=== PATIENT | male | born 1995 | race Caucasian/White ===

== ENCOUNTER 2017-01-15 17:48 | Emergency (ER) | payer OTHER ==
[~2017-01-15] VITALS: Ht 177.8 cm; Wt 102.0 kg
[~2017-01-15 17:48] MED LIST: KEFLEX500 MG PO; MOTRIN800 MG PO; PERCOCET 10/1 TABLET PO; PREDNISONE10 M1 PO
[2017-01-15 18:11] LABS: BASOPHIL COUNT 0.1 K/uL (0-0.1); EOSINOPHIL (%) 0.6 % (0-5); EOSINOPHIL COUNT 0.1 K/uL (0-0.3); IMMATURE GRANULOCYTE (%) 0.5 % (0.0-0.7); INSTRUMENT ABS NEUTROPHIL CT 4.6 K/uL; LYMPHOCYTE COUNT 3.4 K/uL (1.0-2.8); MCH 30.9 PG (29.0-34.0); MCHC 34.8 G/DL (30.0-36.0); MEAN PLAT.VOLUME 10.1 uM^3 (9.0-12.4); MONOCYTE (%) 7.1 % (3-12); MONOCYTE COUNT 0.6 K/uL (0-0.8); NEUTROPHIL (%) 52.1 % (45-76); NEUTROPHIL COUNT 4.6 K/uL (1.8-6.4); PLATELET COUNT 332 K/uL (156-360); RBC DIS.WIDTH-CV 11.7 % (11.8-14.6); RBC DIS.WIDTH-SD 37.9 % (39-53); RED BLOOD COUNT 5.17 M/uL (4.00-5.50); WHITE BLOOD COUNT 8.7 K/uL (4.1-10.2)
[2017-01-15 18:25] LABS: AMYLASE 49 IU/L (1-118); CHLORIDE 102 mEq/L (99-109); POTASSIUM 3.5 mEq/L (3.7-5.4); SODIUM 138 mEq/L (136-147)
[2017-01-15 18:26] LABS: GLUCOSE 129 mg/dL (70-99)
[2017-01-15 18:28] LABS: ANION GAP 18 MEQ/L (2-14)
[2017-01-15 18:30] LABS: GFR ESTIMATE (CALCULATED) > 59 mL/min/; SERUM ETHYL ALCOHOL < 10 mg/dL
[2017-01-15 18:31] LABS: UREA NITROGEN (BUN) 14 mg/dL (9-23)
[2017-01-15 18:33] LABS: LIPASE 24 U/L (1.0-51.0)
[2017-01-15 20:01] LABS: ADD MIUA? NO; BILIRUBIN NEGATIVE; BLOOD NEGATIVE; COLOR STRAW ((YELLOW)); GLUCOSE (STRIP) NEGATIVE; KETONES NEGATIVE; LEUKOCYTES NEGATIVE; NITRITE NEGATIVE; PROTEIN (STRIP) NEGATIVE; SPECIFIC GRAVITY 1.027 (1.000-1.030); UCUL ADDED? NO; UROBILINOGEN 0.2 MG/DL (0.2-1.0)
[2017-01-15 20:19] LABS: AMPHETAMINE NEGATIVE (500 ng/mL); BARBITURATES NEGATIVE (200 ng/mL); BENZODIAZEPINES NEGATIVE (150 ng/mL); COCAINE NEGATIVE (150 ng/mL); INTERNAL CONTROLS VALID? YES; METHADONE NEGATIVE (200 ng/mL); METHAMPHETAMINE NEGATIVE (500 ng/mL); OPIATES (MORPHINE) NEGATIVE (100 ng/mL); OXYCODONE PRESUMPTIVE POSITIVE (100 ng/mL); PHENCYCLIDINE NEGATIVE (25 ng/mL); PROPOXYPHENE NEGATIVE (300 ng/mL); THC CANNABINOIDS NEGATIVE (50 ng/mL); TRICYCLIC ANTIDEPRESSANTS NEGATIVE (300 ng/mL)
== END 2017-01-15 23:01 | disposition short-term general hospital (02) ==
LOC: TRA 17:48 → EME 17:48 → TRA 23:01
PROVIDERS: Emergency Medicine
DX: M62.81 Muscle weakness (generalized) (principal); M54.5 Low back pain; R00.0 Tachycardia, unspecified; T14.8 Other injury of unspecified body region; V49.40XA Driver injured in collision with unspecified motor vehicles in traffic accident, initial encounter; Y92.411 Interstate highway as the place of occurrence of the external cause; M79.622 Pain in left upper arm; M54.9 Dorsalgia, unspecified; Q79.6 Ehlers-Danlos syndromes
CPT/HCPCS: 70450; 71260; 72125; 72129; 72132; 74177; 80048; 81003; 82150; 83690; 85025; 86850; 86900; 86901; 99281; 99285; G0480; J2060; J2270; J2405; J3010

== ENCOUNTER → 2017-01-22 | Outpatient (CLI) | payer OTHER | END | disposition home or self-care (01) | LOC: MRI 09:03 → RAD 13:30 → MRI 13:30 | DX: M48.06 Spinal stenosis, lumbar region (principal); M48.04 Spinal stenosis, thoracic region; M51.36 Other intervertebral disc degeneration, lumbar region; M51.24 Other intervertebral disc displacement, thoracic region; M54.2 Cervicalgia; V89.2XXD Person injured in unspecified motor-vehicle accident, traffic, subsequent encounter | CPT/HCPCS: 72141; 72146; 72148 ==

== ENCOUNTER → 2017-01-22 | Outpatient (CLI) | payer OTHER | END | disposition home or self-care (01) | LOC: RAD 08:57 | DX: R16.1 Splenomegaly, not elsewhere classified (principal) | CPT/HCPCS: 76700 ==